=== PATIENT | female | born 1980 | race Caucasian/White ===

== ENCOUNTER 2016-06-08 12:24 | Inpatient (IN) | payer OTHER ==
[2016-06-08 14:24] LABS: Hematocrit 33 % (35-47); Hemoglobin 10.9 g/dl (12.0-16.0); Mean Corpuscular HGB Conc 33 g/dl (31-36); Mean Corpuscular Hemoglobin 27 pg (27-31); Mean Corpuscular Volume 82 fL (80-97); Mean Platelet Volume 11 um3 (7.4-10.4); Red Blood Count 4.03 10^6/ul (4.0-5.4); Red Cell Distribution Width 14 % (10.5-15); White Blood Count 11.9 10^3/ul (3.5-10.8)
[2016-06-08] MEDS ORDERED: OBEPIDURAL* 250 ML ONE (15:14)
[2016-06-08] MEDS ORDERED: Oxytocin in LR* 20 UNITS/1,000 ML BAG IVPB ONE (18:25)
[2016-06-08] MEDS ORDERED: oxyCODONE/Acetamin 5/325 MG* TAB PO PRN (20:11)
[2016-06-08] MEDS ORDERED: Dibucaine 1% 28.35 GM TUBE PR PRN (20:11)
[2016-06-08] MEDS ORDERED: Glycerin ADULT SUPP PR PRN (20:11)
[2016-06-08] MEDS ORDERED: Acetaminophen TAB* 325 MG PO PRN (20:11)
[2016-06-08] MEDS ORDERED: Oxytocin in LR* 20 UNITS/1,000 ML BAG IVPB SCH (21:00)
[2016-06-08] MEDS: Docusate CAP* 100 MG PO SCH (21:00)
[2016-06-08] MEDS ORDERED: Simethicone TAB* 80 MG TAB.CHEW PO SCH (21:00)
[2016-06-08] MEDS ORDERED: Ammonia Inhalant* 1 EA AMP ONE (23:06)
[2016-06-08] MEDS: Ibuprofen TAB* 600 MG PO PRN (23:41)
[2016-06-09] MEDS: Levothyroxine TAB* 100 MCG TAB PO SCH (04:47)
[2016-06-09 07:47] LABS: Hematocrit 22 % (35-47); Mean Corpuscular HGB Conc 32 g/dl (31-36); Mean Corpuscular Hemoglobin 27 pg (27-31); Mean Corpuscular Volume 82 fL (80-97); Mean Platelet Volume 10 um3 (7.4-10.4); Red Blood Count 2.63 10^6/ul (4.0-5.4); Red Cell Distribution Width 14 % (10.5-15); White Blood Count 14.6 10^3/ul (3.5-10.8)
[2016-06-09] MEDS: Docusate CAP* 100 MG PO SCH ×3 (07:50→19:27)
[2016-06-09] MEDS: Ibuprofen TAB* 600 MG PO PRN ×3 (07:50→19:27)
[2016-06-09] MEDS: Ferrous Gluconate TAB* 324 MG TAB PO SCH ×2 (08:23→19:27)
[2016-06-09] MEDS ORDERED: Lidocaine 1% MPF* 2 ML VIAL ONE (16:27)
[2016-06-10] MEDS: Ibuprofen TAB* 600 MG PO PRN ×4 (02:43→20:54)
[2016-06-10] MEDS: Witch Hazel PAD* JAR TOPICAL PRN ×2 (04:51→08:22)
[2016-06-10] MEDS: Levothyroxine TAB* 100 MCG TAB PO SCH (04:52)
[2016-06-10 07:24] LABS: Hematocrit 24 % (35-47); Mean Corpuscular HGB Conc 33 g/dl (31-36); Mean Corpuscular Hemoglobin 27 pg (27-31); Mean Corpuscular Volume 83 fL (80-97); Mean Platelet Volume 10 um3 (7.4-10.4); Red Blood Count 2.95 10^6/ul (4.0-5.4); Red Cell Distribution Width 14 % (10.5-15); White Blood Count 15.4 10^3/ul (3.5-10.8)
[2016-06-10] MEDS: Docusate CAP* 100 MG PO SCH ×3 (08:21→20:54)
[2016-06-10] MEDS: Ferrous Gluconate TAB* 324 MG TAB PO SCH ×2 (08:21→20:54)
--- NOTE | 2016-06-10 23:27 | PTEDU ---
Patient Name: ROBBY ARELLANO ROBBY ARELLANO selected video: Follow Me Mum: [facility] to view on 06/10 at 11:26:47 PM [id number]
[2016-06-11] MEDS: Ibuprofen TAB* 600 MG PO PRN ×2 (03:44→14:43)
[2016-06-11] MEDS: Levothyroxine TAB* 100 MCG TAB PO SCH (06:12)
[2016-06-11] MEDS: Docusate CAP* 100 MG PO SCH ×2 (08:39→13:59)
[2016-06-11] MEDS: Ferrous Gluconate TAB* 324 MG TAB PO SCH (08:39)
[2016-06-11 08:54] VITALS: BP 127/76
[2016-06-11] MEDS: Witch Hazel PAD* JAR TOPICAL PRN (13:59)
== END 2016-06-11 15:31 | disposition home or self-care (01) | DRG 560 ==
LOC: MCHOBOUT 12:24 → MCHOB 13:01
PROVIDERS: ADMIT Obstetrics & Gynecology; ATTEND Obstetrics & Gynecology
PROC: 10E0XZZ Delivery of Products of Conception, External Approach (ICD-10-PCS; principal; 2016-06-08)
PROC: 0KQM0ZZ Repair Perineum Muscle, Open Approach (ICD-10-PCS; 2016-06-08)
PROC: 10907ZC Drainage of Amniotic Fluid, Therapeutic from Products of Conception, Via Natural or Artificial Opening (ICD-10-PCS; 2016-06-08)
PROC: 30233N1 Transfusion of Nonautologous Red Blood Cells into Peripheral Vein, Percutaneous Approach (ICD-10-PCS; 2016-06-08)
DX: O34.211 Maternal care for low transverse scar from previous cesarean delivery (principal); D64.89 Other specified anemias; O70.1 Second degree perineal laceration during delivery; O75.89 Other specified complications of labor and delivery; O90.81 Anemia of the puerperium; Z3A.38 38 weeks gestation of pregnancy; Z37.0 Single live birth
CPT/HCPCS: 36415; 85025; 85027; 86850; 86900; 86901; 86922; A9270-GY; P9016

== ENCOUNTER 2016-10-09 15:46 | Emergency (ER) | payer BC ==
[2016-10-09 16:04] VITALS: BP 120/70
--- NOTE | 2016-10-09 16:26 | UC ---
Skin Complaint HPI - HPI Summary HPI Summary: ONSET OF RED, ITCHY, RASH ON BACKS OF KNEES AND CALVES ABOUT A WEEK AND A HALF AGO. SEVERAL DAYS LATER THE RASH APPEARED ON HER BILATERAL UPPER EXTREMITIES. THE RASH ON HER LEGS HAS RESOLVED BUT IS PERSISTENT ON HER ARMS. NOTHING ON TRUNK OR FACE. DENIES ANY NEW EXPOSURES. NO RECENT TRAVEL. NO NEW MEDS. 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 ANTIHISTAMINES ARE NOT HELPING. - History of Current Complaint Chief Complaint: UCRash Time Seen by Provider: 10/09/16 15:59 Stated Complaint: RASH Hx Obtained From: Patient Hx Last Menstrual Period: has not had - 4 months pp Onset/Duration: Gradual Onset, Lasting Days, Still Present Timing: Constant Onset Severity: Moderate Current Severity: Moderate Pain Intensity: 0 Pain Scale Used: 0-10 Numeric Location: Discrete - BILATERAL UPPER EXTREMITIES Character: Pruritus, Redness Aggravating: Touch Alleviating: Nothing Associated Signs & Symptoms: Positive: Rash - Allergy/Home Medications Allergies/Adverse Reactions: Allergies Allergy/AdvReac Type Severity Reaction Status Date / Time No Known Allergies Allergy Verified 10/09/16 16:04 Home Medications: Home Medications Sertraline HCl [Zoloft] 25 mg PO 10/09/16 [History] Review of Systems Constitutional: Negative Skin: Rash Respiratory: Negative Cardiovascular: Negative Gastrointestinal: Negative All Other Systems Reviewed And Are Negative: Yes PMH/Surg Hx/FS Hx/Imm Hx Endocrine History: Hypothyroidism - Surgical History Surgical History: Yes Surgery Procedure, Year, and Place: - Family History Known Family History: Negative: Hypertension - Social History Alcohol Use: None Alcohol Amount: 3-4xs per week prior to Substance Use Type: None Smoking Status (MU): Never Smoked Tobacco Have You Smoked in the Last Year: No - Immunization History Most Recent Influenza Vaccination: 02/22/2016 Most Recent Tetanus Shot: 03/21/2016 Most Recent Pneumonia Vaccination: n/a Physical Exam Triage Information Reviewed: Yes Appearance: Well-Appearing, No Pain Distress, Well-Nourished Vital Signs: Initial Vital Signs Temp 97.9 F 10/09/16 15:59 Pulse 79 10/09/16 15:59 Resp 16 10/09/16 15:59 BP 120/70 10/09/16 15:59 Pulse Ox 100 10/09/16 15:59 Eyes: Positive: Conjunctiva Clear ENT: Positive: Hearing grossly normal Neck: Positive: Supple Respiratory: Positive: No respiratory distress, No accessory muscle use Cardiovascular: Positive: Pulses Normal Abdomen Description: Positive: Soft Musculoskeletal: Positive: No Edema Neurological: Positive: Alert Psychological: Positive: Age Appropriate Behavior Skin: Positive: rashes - ERYTHEMATOUS PAPULAR RASH WITH AREAS OF CONFLUENCE DIFFUSELY OVER BILATERAL UPPER EXTREMITIES. NOT VESICULAR. NOT IN CLUSTERS OR STREAKS Course/Dx - Diagnoses Provider Diagnoses: ALLERGIC DERMATITIS Discharge - Discharge Plan Condition: Stable Disposition: HOME Prescriptions: Triamcinolone 0.1% CREAM(NF) [Kenalog Cream 0.1%(NF)] 1 applic TOPICAL TID PRN # 1 tube PRN Reason: Itching predniSONE TAB* [Deltasone TAB*] 50 mg PO DAILY #5 tab Patient Education Materials: Contact Dermatitis (ED), General Allergic Reaction (ED) Referrals: Zarina Angel [Primary Care Provider] - If Needed Additional Instructions: UNCLEAR TO WHAT YOU ARE REACTING. IF YOUR SYMPTOMS BECOME RECURRENT WOULD CONSIDER EVAL BY SECURITY ASSOCIATE. USE DAILY MOISTURIZING LOTION AVOID HOT WATER TAKE OTC ANTIHISTAMINE DAILY (CLARITIN (LORATADINE), ZYRTEC (CETIRIZINE) OR ALYSIA (FEXOFENADINE) IN THE MORNING, BENADRYL AT NIGHT) DO NOT SCRATCH KEEP COOL, CLEAN AND DRY [facility] Address: [address] [address] [facility] [address] [place], [place] [address], [address] [place] [address]
== END 2016-10-09 16:48 | disposition home or self-care (01) ==
LOC: UCEAST 15:46
DX: L23.9 Allergic contact dermatitis, unspecified cause (principal)
CPT/HCPCS: 99212; G0463